=== PATIENT | female | born 1990 | race American Indian/Alaskan Native ===

== ENCOUNTER 2021-09-18 16:46 | Emergency (ER) | payer SELFPAY ==
[2021-09-18 17:07] VITALS: BP 136/93
[2021-09-18] MEDS ORDERED: IBUPROFEN 800 MG TAB PO ONE (17:40)
--- NOTE | 2021-09-18 17:45 | Emergency Department Report ---
Minor Respiratory - HPI Chief Complaint: Upper Respiratory Infection Stated Complaint: BODYACHES, HEADACHE Duration: 3 Days Minor Respiratory: Yes Rhinorrhea, Yes Able to Tolerate Fluids, Yes Cough, Yes Fever, No Sore Throat, No Ear Pain, No Sick Contacts, No Hemoptysis, No Chest Pain, No Shortness of Breath Other History: 30-year-old -[place] female presents to the emergency room complaining of a 3-day history of nasal congestion headache and body aches. She also reports a cough she is unaware of any fever chills no nausea no vomiting. She does state that her cough has green phlegm. She is not vaccinat ed for Covid and has not tested for Covid. She has been taken [id number] Tylenol Sinus and Robitussin. Her primary care provider is at [facility]. ED Review of Systems ROS: Stated complaint: BODYACHES, HEADACHE Other details as noted in HPI Comment: All other systems reviewed and negative ED Past Medical Hx - Medications Home Medications: Home Medications Medication Instructions Recorded Confirmed Last Taken Type No Known Home Medications [No 09/18/21 09/18/21 Unknown History Reported Home Medications] Minor Respiratory Exam - Exam General: Vital signs noted. No distress. Alert and acting appropriately. HEENT: Yes Moist Mucous Membranes, Yes Frontal Tenderness, Yes Maxillary Tenderness, No Pharyngeal Erythema, No Pharyngeal Exudates, No Rhinorrhea, No Conjuctival Injection Ear: Neither EAC Pain Neck: Yes Supple, No Adenopathy Lungs: Yes Good Air Exchange, No Wheezes, No Ronchi, No Stridor, No Cough, No Labored Respirations, No Retractions, No Use of Accessory Muscles, No Other Abnormal Lung Sounds Heart: Yes Regular, No Murmur Abdomen: Yes Normal Bowel Sounds, No Tenderness, No Peritoneal Signs Skin: No Rash, No Edema Neurologic: Alert and oriented, no deficits. Musculoskeletal: Unremarkable. ED Course Vital Signs 09/18/21 16:46 Temperature 100.4 F H Pulse Rate 98 H Respiratory 16 Rate Blood Pressure 136/93 [Right] O2 Sat by Pulse 98 Oximetry ED Medical Decision Making - Medical Decision Making 30-year-old -[place] female presents to the emergency room complaining of a 3-day history of nasal congestion headache and body aches. She also reports a cough she is unaware of any fever chills no nausea no vomiting. She does state that her cough has green phlegm. She is not vaccinated for Covid and has not tested for Covid. She has been taken [id number] Tylenol Sinus and Robitussin. Her primary care provider is at [facility]. Offered to do a chest x-ray and flu patient declined. She states that she take the recommendations of getting a Covid test starting on some Afrin cetirizine Tylenol and ibuprofen and continue with her sinus medicines. Did discuss with patient is very important to increase her fluid intake. Critical care attestation.: If time is entered above; I have spent that time in minutes in the direct care of this critically ill patient, excluding procedure time. ED Disposition Clinical Impression: Suspected 2019 novel coronavirus infection Disposition: HOME / SELF CARE / HOMELESS Is pt being admited?: No Does the pt Need Aspirin: No Condition: Stable Instructions: COVID-19 Frequently Asked Questions, COVID-19: How to Protect Yourself and Others - [facility] Additional Instructions: Your symptoms appear most consistent with a nonspecific viral syndrome. However, given this current pandemic, COVID-19 is in the differential of possib ilities. Despite your previous negative COVID-19 test, I do recommend repeat outpatient Covid 19 testing. In the meantime, isolate/quarantine yourself and stay away from anyone who is elderly, immunocompromised or chronically ill. You can use ibuprofen every 6-8 hours and Tylenol every 4-8 hours, using the dosing on the back of the bottle, as needed for any fever or body aches. Return to the emergency department with any worsening of your symptoms, development of chest pain or shortness of breath, or with any acute distress. She can try [id number] Afrin or dollar store brand as nasal relief. Start back to your Zyrtec's or cetirizine. He can continue with the Tylenol or ibuprofen's cold and sinus. Robitussin as needed for cough. Increase your fluid intake. Referrals: [facility] [Provider Group] - 3-5 Days Forms: Work/School Release Form(ED) Time of Disposition: 17:40
== END 2021-09-18 18:00 | disposition home or self-care (01) ==
LOC: ED 16:46
DX: Z20.828 Contact with and (suspected) exposure to other viral communicable diseases (principal)
CPT/HCPCS: 99282